=== PATIENT | female | born 1945 | race Caucasian/White ===

== ENCOUNTER 2016-08-18 12:44 | Inpatient (IN) | payer BC, OTHER ==
[~2016-08-18] VITALS: Ht 165.1 cm; Wt 78.9 kg
[2016-08-18] MEDS ORDERED: GABA-534 PO (13:08)
[2016-08-18] MEDS ORDERED: LISI-607 PO (13:08)
[2016-08-18] MEDS ORDERED: FOLI1TAB16 PO (13:08)
[2016-08-18] MEDS ORDERED: LORAZEPAM 0.5 MG TABLET PO PRN (13:30)
[2016-08-18] MEDS ORDERED: MAGNESIUM HYDROXIDE 30 ML UDC PO PRN (13:30)
[2016-08-18] MEDS ORDERED: MAG HYDROX/AL HYDROX/SIMETH 30 ML UDC PO PRN (13:30)
[2016-08-18] MEDS ORDERED: TEMAZEPAM 7.5 MG CAPSULE PO PRN (13:30)
--- NOTE | 2016-08-18 15:03 | NUR ---
ADMITTED A 70 YEARS FEMALE ON 5150 FOR DTS. PT. WITH INCREASED DEPRESSION FOR THE LAST COUPLE OF DAYS. PT. STATED " I'VE BEEN INCREASINGLY DEPRESS FOR THE LAST COUPLE OF WEEKS . I JUST WANT MY DEPRESSION TO GO AWAY, I WOULD NOT HURT MYSELF BUT I ASK GOD TO TAKE ME". PT. CAME [facility] IN [place], ARRIVED IN THE UNIT VIA A GURNEY. ALERT/ ORIENTED X4, AMBULATORY. UPON FACE TO FACE ASSESSMENT PT. DENIED SUICIDAL AND HOMICIDAL AND WITH DEPRESSED MOOD. V/S TAKEN, CONTRABAND DONE, SKIN ASSESSMENT DONE AND MRSA TAKEN. DR. PETERSON MADE AWARE OF THE ADMISSION, GAVE ORDERS AND SEEN PT. LYUDMILA ALANIS NOTIFIED ABOUT THE ADMISSION AND TOLD TO RECONCILE MEDS AND SAID HE WILL RECONCILE. NEEDS ATTENDED, ORIENTED IN THE UNIT AND WILL CONTINUE TO MONITOR FOR SAFETY. Addendum: 08/18/16 at 1853 by VASILIY JOHNSON RN TERA STOKES WAS NOTIFIED ABOUT THE ADMISSION.
[2016-08-18 15:19] VITALS: BP 158/77
[2016-08-18 16:00] VITALS: BP 125/73
[2016-08-18 19:57] VITALS: BP 142/79
[2016-08-18] MEDS: MIRTAZAPINE 15 MG TABLET PO SCH (21:02)
--- NOTE | 2016-08-18 21:04 | NUR ---
GPS RN NOTES MIRTAZAPINE 7.5 MG TAKEN BY PATIENT. WASTED 7.5 MG. OR HALF A TAB.
[2016-08-18] MEDS: GABAPENTIN 300 MG CAPSULE PO SCH (22:00)
--- NOTE | 2016-08-18 22:23 | NUR ---
GPS RN NOTES PATIENT REFUSED HS DOSE OF NEURONTIN. STATES THAT SHE DOES NOT HAVE SPASMS AND NEUROGENIC PAIN AT THIS TIME. FURTHERMORE, SHE DOES NOT BELIEVE IN TAKING TOO MUCH MEDICATION. OFFERED MEDICATION 3X. DECLINED 3X.
[2016-08-19 06:31] LABS: ALBUMIN 3.5 g/dL (3.4-5.0); BILIRUBIN,TOTAL 0.3 mg/dL (0.2-1.0); CREATININE 1.3 mg/dL (0.6-1.3); POTASSIUM 4.5 mmol/L (3.5-5.1); TOTAL PROTEIN, SERUM 7.4 g/dL (6.4-8.2)
[2016-08-19 08:00] VITALS: BP 130/74
[2016-08-19] MEDS: FOLIC ACID 1 MG TABLET PO SCH (08:21)
[2016-08-19] MEDS: LISINOPRIL (5MG) 5 MG TABLET PO SCH (08:22)
--- NOTE | 2016-08-19 10:30 | NUR ---
GPS/RN PT STATES NOT TO HAVE ALLERGY TO TYLENOL BUT TO CODEINE ONLY. NEW ORDERS FROM DR PETERSON RECEIVED AND CARRIED OUT.
[2016-08-19] MEDS: ACETAMINOPHEN 325 MG TABLET PO PRN (12:08)
--- NOTE | 2016-08-19 12:08 | NUR ---
ADMINISTERED TYLENOL 650 MG PO PRN FOR HEADACHE, PER PATIENT REQUEST.CONTINUED MONITORING.
[2016-08-19 20:08] VITALS: BP 136/71
[2016-08-19] MEDS: GABAPENTIN 300 MG CAPSULE PO SCH (21:04)
[2016-08-19] MEDS: MIRTAZAPINE 15 MG TABLET PO SCH (21:04)
--- NOTE | 2016-08-20 04:15 | NUR ---
PT. C/O CONSTIPATION MOM 30 ML PO PRN GIVEN PER PT. REQUEST CONTINUE TO MONITOR
--- NOTE | 2016-08-20 07:09 | NUR ---
GPS RN NOTES NO BM NOTED DURING SHIFT , . ENDORSE TO NEXT SHIFT FOR MONITORING FOR BM AND CONTINUITY OF CARE
[2016-08-20 08:00] VITALS: BP 138/79
[2016-08-20] MEDS: FOLIC ACID 1 MG TABLET PO SCH (08:11)
[2016-08-20] MEDS: LISINOPRIL (5MG) 5 MG TABLET PO SCH (08:11)
--- NOTE | 2016-08-20 15:50 | NUR ---
UR Update: CHILANGO called [employer] [phone] Spoke to Norma to see if authorization number was available and if a SW was assigned. She stated that paperwork (8565, H&P, crisis eval, progress note) was not received and sent to incorrect fax. Called intake to give correct fax number of [phone] and she stated that she will fax paperwork. CHILANGO will follow up.
[2016-08-20 16:20] VITALS: BP 129/78
[2016-08-20 20:00] VITALS: BP 124/74
[2016-08-20] MEDS: MIRTAZAPINE 15 MG TABLET PO SCH (21:33)
[2016-08-20] MEDS: GABAPENTIN 300 MG CAPSULE PO SCH (21:33)
[2016-08-21] MEDS: ACETAMINOPHEN 325 MG TABLET PO PRN (06:09)
[2016-08-21] MEDS: FOLIC ACID 1 MG TABLET PO SCH (08:14)
[2016-08-21] MEDS: LISINOPRIL (5MG) 5 MG TABLET PO SCH (08:15)
[2016-08-21 08:19] VITALS: BP 120/71
[2016-08-21] MEDS ORDERED: DOCUSATE SODIUM 100 MG CAPSULE PO SCH (09:00)
--- NOTE | 2016-08-21 11:17 | NUR ---
Raysa Josiah: [phone]. Addendum: 08/21/16 at 1204 by TUCKER KEE cell: [phone]
--- NOTE | 2016-08-21 11:43 | NUR ---
CHILANGO called [facility] [phone] and spoke to Norma who indicated that Christine Ang is the assigned case liner (tel: [phone] fax: [phone]). Chilango called Christine and left a message stating that she was calling to follow up on aftercare appts for the patient. CHILANGO provided call back information. CHILANGO will attempt again. Addendum: 08/21/16 at 1222 by TUCKER KEE Spoke to Christine who stated that [facility] is responsible for arranging aftercare appts ([phone]). Spoke to Yris (extension [phone]) at [facility] who stated that she will work on aftercare appointments and will call the SW back. Provided telephone number for patient and . Chilango will follow up.
--- NOTE | 2016-08-21 12:42 | NUR ---
Per psychiatrist Dr. Kern, patient is okay to discharge today. Patient's nurse Gabby is informed. SW informed the patient's Josiah ([phone]) who stated that he can pick the patient up around 3-3:30pm. Patient will be discharged home with to [address] [place] [id number].
--- NOTE | 2016-08-21 14:05 | NUR ---
SW received call from Yris from [facility] ([phone] ext [phone]). She stated that the aftercare appts are the following: Appt with Dr. Merrill (psychologist) on August 22, 2016 at 10AM at [address] [facility] [address], [place] [address] . [address] with psychiatrist Dr. Nieto 08/30/2016 at 3pm located at [address] [address]; [phone]. Yris stated that she will arrange a Anjelica appointment for psychologist at the [place] office for the month of September since it is a lot closer for the patient but no current available appointments. Per Yris, if patient is to cancel, to please have her call the respective offices.
--- NOTE | 2016-08-21 14:26 | NUR ---
Initial discharge plan: Pt. lives with her , Josiah, at [address] [address] and wants to return home upon discharge. Pt's agreed to pickling operator the patient. SW will follow up with MD and pt. and will help form safe and proper discharge.
--- NOTE | 2016-08-21 15:05 | NUR ---
DISCHARGE NOTES/ PATIENT DISCHARGE AT THIS TIME GOING HOME. PT A/O X3, MED COMPLIANT, V/S STABLE, AMBULATORY, SELF CARE, NO C/O PAIN. PATIENT DENIED SI/HI/AVH AT THIS TIME. MED RECONCILIATION , AND DISCHARGE ORDER REVIEWED AND EXPLAINED TO PATIENT, AND . PATIENT VERBALIZED UNDERSTANDING. BELONGING RETURNED BACK TO THE PATIENT. PATIENT REFUSED PICTURE TO BE TAKEN. PATIENT [facility] [employer] BY NAME TERA PHONE #[phone].
--- NOTE | 2016-08-21 15:48 | NUR ---
Discharge note: Pt. was discharged back home with , Josiah, at [address] [facility] [address] via private car. Pt. had a follow up Appointment with Dr. Merrill (psychologist) on August 22, 2016 at 10AM at [address] [facility] [address] [place] [address] [address] with psychiatrist Dr[address] Nieto 08/30/2016 at 3pm located at [address] [facility] [address], [place] [address]; [phone]. Pt. was provided with this information in writing. Pt. was calm and cooperative upon discharge and agreed with the plan. Pt. denied suicidal/homicidal ideations. pt's signed the continuing care acknowledgement form. Discharge paperwork has been signed and discharge instructions have been provided to the patient and .
--- NOTE | 2016-08-21 15:50 | NUR ---
UR update: CHILANGO faxed discharge information to [facility] [employer] [phone] fax [phone].
== END 2016-08-21 15:05 | disposition home or self-care (01) | DRG 885 ==
LOC: GPS 12:44
PROVIDERS: ADMIT Psychiatry & Neurology Psychosomatic Medicine; ATTEND Nurse Practitioner Acute Care
DX: F33.2 Major depressive disorder, recurrent severe without psychotic features (principal); G89.29 Other chronic pain; M54.30 Sciatica, unspecified side; Z96.653 Presence of artificial knee joint, bilateral; Z90.710 Acquired absence of both cervix and uterus; Z87.442 Personal history of urinary calculi; I12.9 Hypertensive chronic kidney disease with stage 1 through stage 4 chronic kidney disease, or unspecified chronic kidney disease; Z82.49 Family history of ischemic heart disease and other diseases of the circulatory system; Z91.19 Patient's noncompliance with other medical treatment and regimen; N18.2 Chronic kidney disease, stage 2 (mild)
CPT/HCPCS: 36415; 80053-TC